=== PATIENT | female | born 1980 | race Caucasian/White ===

== ENCOUNTER 2018-11-03 10:20 | Inpatient (IN) | payer OTHER ==
[~2018-11-03] VITALS: Ht 156 cm; Wt 61.2 kg
[~2018-11-03 10:20] MED LIST: DSS100 PO; FERR-89 PO; PREN-134 PO; TYL3 PO
[2018-11-03] MEDS ORDERED: RINGERS SOLUTION,LACTATED 1,000 ML IV ONE (10:55)
[2018-11-03] MEDS ORDERED: METOCLOPRAMIDE HCL 5 MG/ML 2 ML VIAL IVP ONE (11:00)
[2018-11-03] MEDS ORDERED: CITRIC ACID/SODIUM CITRATE 30 ML SOLUTION UDCUP PO ONE (11:00)
[2018-11-03 11:30] LABS: BASOPHILS % (AUTO) 0.3 % (0.0-2.0); EOSINOPHILS % (AUTO) 2.9 % (1.0-6.0); HEMATOCRIT 37.6 % (36-46); HEMOGLOBIN 12.3 g/dL (12.0-16.0); LYMPHOCYTES # (AUTO) 2.2 K/uL (1.0-4.8); LYMPHOCYTES % (AUTO) 21.5 % (22.0-44.0); MEAN CORPUSCULAR HEMOGLOBIN 27.2 pg (26.0-34.0); MEAN CORPUSCULAR HGB CONC 32.6 G/dL (31.0-37.0); MEAN CORPUSCULAR VOLUME 83 fL (80-100); MONOCYTES # (AUTO) 0.6 K/uL (0.1-1.0); MONOCYTES % (AUTO) 6.1 % (2.0-9.0); NEUTROPHILS # (AUTO) 7.2 K/uL (1.8-7.7); NEUTROPHILS % (AUTO) 69.2 % (40.0-70.0); PLATELET COUNT (AUTO)-OB 187 K/uL (150-450); RED BLOOD CELL COUNT(AUTO) 4.51 MIL/uL (4.00-5.20); RED CELL DISTRIBUTION WIDTH 15.3 % (11.5-14.5)
[2018-11-03 11:55] VITALS: BP 115/69
[2018-11-03] MEDS ORDERED: OXYTOCIN 10 UNITS/ML VIAL IM ONE (12:00)
[2018-11-03] MEDS ORDERED: EPHEDrine SULFATE 50 MG/ML VIAL IVP ONE (12:00)
[2018-11-03] MEDS ORDERED: DEXAMETHASONE SOD PHOS 4 MG/ML VIAL ONE (12:18)
[2018-11-03] MEDS ORDERED: MIDAZOLAM HCL 2 MG/2 ML VIAL ONE (12:18)
[2018-11-03] MEDS ORDERED: KETOROLAC TROMETHAMINE 30 MG/ML VIAL ONE (12:18)
[2018-11-03] MEDS ORDERED: MORPHINE SULFATE/PF 1 MG/ML 10 ML AMP ONE (12:18)
[2018-11-03] MEDS ORDERED: FentaNYL CITRATE-PF 100 MCG/2 ML VIAL ONE (12:18)
[2018-11-03] MEDS ORDERED: ONDANSETRON HCL 4 MG/2 ML VIAL ONE (12:18)
[2018-11-03] MEDS ORDERED: BUPIVACAINE HCL/DEX-WATER/PF 0.75% 2 ML AMP ONE (12:19)
[2018-11-03] MEDS ORDERED: GUM MASTIC/STORAX/MSAL/ALCOHOL LIQUID 0.67 ML VIAL TP ONE (12:25)
[2018-11-03] MEDS ORDERED: CLINDAMYCIN 900 MG/D5% WATER 50 ML IV ONE (12:36)
[2018-11-03] MEDS ORDERED: FentaNYL CITRATE-PF 100 MCG/2 ML VIAL IVP PRN (13:00)
[2018-11-03] MEDS ORDERED: ONDANSETRON HCL 4 MG/2 ML VIAL IVP PRN (13:00)
[2018-11-03] MEDS ORDERED: DiphenhydrAMINE HCL 50 MG/ML VIAL IVP PRN (13:00)
[2018-11-03] MEDS ORDERED: NALOXONE HCL 0.4 MG/ML VIAL IVP PRN (13:00)
[2018-11-03] MEDS ORDERED: HYDROmorphone 2 MG/ML SYRINGE IVP PRN (13:00)
[2018-11-03] MEDS ORDERED: MEPERIDINE-PF 25 MG/ML VIAL IVP PRN (13:00)
[2018-11-03] MEDS ORDERED: OxyCODONE HCL/ACETAMINOPHEN 5-325 MG TABLET PO PRN ×2 (13:15→15:15)
[2018-11-03] MEDS ORDERED: OXYTOCIN 30 UNITS/LACT RINGERS 500 ML IV ONE (15:14)
[2018-11-03] MEDS ORDERED: LANOLIN 7 GM OINTMENT TP PRN (15:15)
[2018-11-03] MEDS ORDERED: ACETAMINOPHEN 1000 MG/ISO-OSM 100 ML IV ONE (16:00)
[2018-11-03] MEDS: KETOROLAC TROMETHAMINE 30 MG/ML VIAL IVP SCH ×2 (16:06→22:31)
[2018-11-03] MEDS: RINGERS SOLUTION,LACTATED 1,000 ML IV SCH (16:07)
[2018-11-03] MEDS ORDERED: OXYGEN THERAPY IH SCH ×2 (20:00)
[2018-11-03] MEDS: MAGNESIUM HYDROXIDE SUSPENSION 30 ML UDCUP PO SCH (22:31)
[2018-11-04] MEDS: RINGERS SOLUTION,LACTATED 1,000 ML IV SCH (00:02)
[2018-11-04] MEDS: KETOROLAC TROMETHAMINE 30 MG/ML VIAL IVP SCH ×2 (03:55→10:13)
[2018-11-04] MEDS ORDERED: MEASLES/MUMPS/RUBELLA VACCINE, LIVE 0.5 ML/VIAL SQ ONE (06:00)
[2018-11-04 07:09] LABS: BASOPHILS % (AUTO) 0.2 % (0.0-2.0); EOSINOPHILS % (AUTO) 0.4 % (1.0-6.0); HEMATOCRIT 30.5 % (36-46); HEMOGLOBIN 10.3 g/dL (12.0-16.0); LYMPHOCYTES # (AUTO) 2.9 K/uL (1.0-4.8); LYMPHOCYTES % (AUTO) 18.1 % (22.0-44.0); MEAN CORPUSCULAR HEMOGLOBIN 28.2 pg (26.0-34.0); MEAN CORPUSCULAR HGB CONC 33.8 G/dL (31.0-37.0); MEAN CORPUSCULAR VOLUME 83 fL (80-100); MONOCYTES % (AUTO) 6.5 % (2.0-9.0); NEUTROPHILS % (AUTO) 74.8 % (40.0-70.0); PLATELET COUNT (AUTO)-OB 147 K/uL (150-450); RED BLOOD CELL COUNT(AUTO) 3.67 MIL/uL (4.00-5.20); RED CELL DISTRIBUTION WIDTH 15.3 % (11.5-14.5)
[2018-11-04] MEDS: MAGNESIUM HYDROXIDE SUSPENSION 30 ML UDCUP PO SCH ×2 (08:21→21:26)
[2018-11-04] MEDS ORDERED: OxyCODONE HCL/ACETAMINOPHEN 5-325 MG TABLET PO PRN (13:00)
[2018-11-04] MEDS: IBUPROFEN 800 MG TABLET PO PRN ×2 (17:17→21:26)
[2018-11-05] MEDS: OxyCODONE HCL/ACETAMINOPHEN 5-325 MG TABLET PO PRN ×2 (04:41→09:01)
[2018-11-05] MEDS: IBUPROFEN 800 MG TABLET PO PRN (04:41)
[2018-11-05] MEDS: MAGNESIUM HYDROXIDE SUSPENSION 30 ML UDCUP PO SCH (09:00)
[2018-11-05] MEDS ORDERED: IBUP-2071 PO (12:02)
== END 2018-11-05 14:00 | disposition home or self-care (01) | DRG 785 ==
LOC: 4S 10:20 → OBSVTOIN 10:20 → 4S 10:21
PROVIDERS: ADMIT Obstetrics & Gynecology; ATTEND Obstetrics & Gynecology
PROC: 10D00Z1 Extraction of Products of Conception, Low, Open Approach (ICD-10-PCS; principal; 2018-11-03)
PROC: 0UB70ZZ Excision of Bilateral Fallopian Tubes, Open Approach (ICD-10-PCS; 2018-11-03)
PROC: 3E0234Z Introduction of Serum, Toxoid and Vaccine into Muscle, Percutaneous Approach (ICD-10-PCS; 2018-11-04)
DX: O34.211 Maternal care for low transverse scar from previous cesarean delivery (principal); Z3A.39 39 weeks gestation of pregnancy; Z37.0 Single live birth; Z88.0 Allergy status to penicillin; Z30.2 Encounter for sterilization; Z23 Encounter for immunization
CPT/HCPCS: 86850; 86900; 86901; 87081; 88302; 90707; J0131; J1100; J1885; J2250; J2405; J2590; J2765; J3010; J3490; J7120